=== PATIENT | female | born 1960 | race Caucasian/White ===

== ENCOUNTER 2024-09-06 11:30 | Outpatient (RCR) | payer MEDICARE, SELFPAY ==
[2024-09-06 09:48] VITALS: BMI 26.3
[2024-09-06 09:49] VITALS: BP 122/60; PULSE 60; TEMP 37.1
--- NOTE | 2024-09-06 10:17 | PC.ADMIT ---
Patient is a 64 year old retired female who was referred to [facility] where she was admitted for 5 days d/t sxs of depression with passive SI and anxiety. Patient reports stressors include taking care of her mother and [facility]. Patient reports she would like to find t[place] in things again or find new things to enjoy. Patient also reports having a CVA in 06/2023. Patient denied any residual effects from the CVA. Patient is alert and oriented x4. She is calm and cooperative. She presented with depressed mood and anxious affect. She denied SI currently. Patient reports she was having passive SI stating, The reason why I went to [facility] my thought was I would be better off then to live with this anxiety and depression but I did not plan it out . No plans or intent. She was given a copy of her safety plan. She identified her supports being her two daughters, , and parents. Medications updated with patient and patient's pharmacy. She reports taking medications as prescribed. Having difficult time with transition to [facility].
== END 2024-09-06 23:59 | disposition home or self-care (01) ==
LOC: HO.PHPA 11:30
PROVIDERS: Visit Provider Psychiatry & Neurology Psychiatry
DX: F41.1 Generalized anxiety disorder (principal); F32.9 Major depressive disorder, single episode, unspecified
CPT/HCPCS: 90853